=== PATIENT | female | born 1955 | race Caucasian/White ===

== ENCOUNTER 2023-01-06 11:15 | Outpatient (RCR) | payer MEDICARE, SELFPAY ==
--- NOTE | 2022-10-22 11:09 | PTOPEVAL1 ---
Assessment and note entered by Dana Acevedo, PT, CLT Evaluation Information Assessment Status Evaluation Diagnosis R and L LE lymphedema Onset July 2022 Reported Pain Level Pain Score 5: Self Report Additional Pain Score Comments heavy legs, numb in legs, L more than R Assessment PT Clinical Summary Quyen has the diagnosis of R and L LE lymphedema. She has never had any treatment for her legs and reports the swelling is working its' way up her leg, now to above knees. With the evaluation, she has tissue changes with redness of skin, papillomas, fibrosis of tissue and lobules over medial lower leg and thighs. There is edema over dorsum of feet and malleoli. She has decreased knee flexion and ankle DF, due to swelling and pain/heaviness in her legs. Skilled PT services are indicated for lymphedema treatment of R and L LE's, with education for self care of lymphedema, compression garments for her to obtain. Plan of Care Interventions Intermittent Compression,Lymphedema Compression Pump ,Manual Lymph Drainage,Patient/Caregiver Education, Therapeutic Exercise PT Services Indicated Yes Treatment Frequency and 0-3x/wk for 7 weeks, due to the availability of Duration therapist to start treatment These treatments will address the objective and functional deficits as defined above. The patient will be advanced safely and appropriately in order for the patient to progress towards his/her prior level of function. Additional exercises will be introduced and as well as a comprehensive home exercise program upon discharge, if needed, ?to ensure carryover of functional gains achieved in the clinic. This treatment plan has been reviewed and agreement upon by the patient.
--- NOTE | 2022-11-16 15:02 | PCPTNOTE ---
LATE ENTRY This note is being entered to document information to the patient's record. The following information was omitted on 11/12/22. Pt called on 11-12-2022 and cancelled her appointment due to her daughter being in the ER.
--- NOTE | 2022-12-11 12:02 | PTOPPROG ---
Assessment and note entered by Dana Acevedo, PT, CLT Evaluation Information Assessment Status Progress Diagnosis R and L LE lymphedema Onset July 2022 Subjective Information Quyen reports: doing good with the velcro garments, her son did not have to help her--able to do by herself; able to sleep with them on; have been using the wrap over the R ankle because it was sore this morning; is excited about how her legs look and feel; legs are getting more feeling into them, they are not as numb as they used to be; able to get legs on the mat better and lift them easier; legs do not rub as much when I walk; feeling better, thinking about going out tonight and start shooting pool again; Assessment PT Clinical Summary Quyen has had 13 PT sessions. Compared to the initial evaluation: decreased with the circumferential measurements: R by 33.6 cm and L by 67.6 cm; skin integrity has improved- -R without any fibrotic tissue and L with slight fibrotic and papillomas over medial-distal thigh; only slight redness over L LE, R without any redness. She has just obtained velcro compression garments for R lower leg and L thigh and lower leg; she is doing well with them, but still requires few cues to correct use/application. She has been educated on self manual lymph drainage and increase activity with leg exercises and walking as tolerated--due to her SOB is limited with walking. The goals were partially met. Continue PT to complete education and garment use, and further reduction of leg size. Plan of Care Interventions Intermittent Compression pump,Lymphedema Compression Wrap ,Manual Lymph Drainage,Patient Education, Therapeutic Activities,Therapeutic Exercise PT Services Indicated Yes Treatment Frequency and 2-3x/wk for 3 weeks Duration These treatments will address the objective and functional deficits as defined above. The patient will be advanced safely and appropriately in order for the patient to progress towards his/her prior level of function. Additional exercises will be introduced and as well as a comprehensive home exercise program upon discharge, if needed, ?to ensure carryover of functional gains achieved in the clinic. This treatment plan has been reviewed and agreement upon by the patient.
--- NOTE | 2023-01-06 11:55 | PTOPDC ---
Assessment and note entered by Dana Acevedo, PT Evaluation Information Assessment Status Discharge Diagnosis R and L LE lymphedema Onset July 2022 Subjective Information Quyen reports: new compression garments are comfortable, has worn the L only a few times due to L toe pain from nail cut; is looking at different socks on [employer]; agree to d/c PT; Reported Pain Level Pain Score 0: Self Report Assessment PT Clinical Summary Quyen has received 19 PT sessions. Compared to the last reevaluation: circumferential measurement of R leg has decreased by 17.3 cm and L by 8.1 cm; she has compression calf high garment, 20-30 mmHg for both legs and L thigh compression velcro garment that fit appropriately and she reports are comfortable. Her skin intergrity has improved, no longer has any fibrotic tissue over lower legs or thighs. Education completed for self care and management of lymphedema. The goals were partially achieved. Discharge PT services. Plan of Care PT Services Indicated No
== END 2023-01-06 14:01 | disposition home or self-care (01) ==
LOC: ANHPT 11:15
PROVIDERS: PCP Internal Medicine; Visit Provider Internal Medicine
DX: I89.0 Lymphedema, not elsewhere classified (principal)
CPT/HCPCS: 29581; 97016; 97140; 97161